=== PATIENT | female | born 1970 | race Caucasian/White ===

== ENCOUNTER → 2018-04-18 07:02 | Outpatient (CLI) | payer BC ==
[2015-05-19 06:24] VITALS: BMI 34.9
[~2018-04-18 07:02] MED LIST: MELATONIN 3 MG1 TAB PO; PRILOSEC20 MG PO; VERELAN180 MG PO
== END | disposition home or self-care (01) ==
LOC: D.MRI 07:02
DX: M25.551 Pain in right hip (principal)

== ENCOUNTER → 2018-07-24 16:59 | Outpatient (CLI) | payer BC ==
[2015-05-19 06:24] VITALS: BMI 34.9
== END | disposition home or self-care (01) ==
LOC: D.MAMMO 07-09 15:30
PROVIDERS: ATTEND Obstetrics & Gynecology
DX: Z12.31 Encounter for screening mammogram for malignant neoplasm of breast (principal)

== ENCOUNTER → 2018-10-10 13:06 | Outpatient (CLI) | payer BC ==
[2015-05-19 06:24] VITALS: BMI 34.9
== END | disposition home or self-care (01) ==
LOC: D.HCCARDIO 13:00
PROVIDERS: ATTEND Internal Medicine Cardiovascular Disease
DX: Z01.818 Encounter for other preprocedural examination (principal)